=== PATIENT | female | born 1955 | race Two or more races ===

== ENCOUNTER 2024-09-22 14:27 | Emergency (ER) | payer OTHER ==
[~2024-09-22] VITALS: Ht 160 cm; Wt 68.0 kg
[2024-09-22] MEDS ORDERED: SIMVASTATIN5 MG PO (15:24)
[2024-09-22] MEDS ORDERED: METOPROLOL SUCC25 MG PO (15:24)
[2024-09-22] MEDS ORDERED: LISINOPRIL-HCT1 EAC1 PO (15:24)
[2024-09-22] MEDS ORDERED: MIDAZOLAM H IJ (15:24)
[2024-09-22] MEDS ORDERED: METHOTREXA25 MG/1 M5 (15:25)
[2024-09-22] MEDS ORDERED: DIPHENHYDRAMINE HCL 50 MG/ML VIAL 1ML IM STA (16:55)
[2024-09-22 18:58] LABS: HEMATOCRIT 36.4 % (36.0-45.00); MEAN CELL VOLUME 93.7 fL (80.00-100.00); MEAN CORPUSCULAR HEMOGLOBIN 30.9 pg (27.00-32.0); PLATELET COUNT 296 K/uL (150-450); RED BLOOD COUNT 3.88 M/uL (4.00-6.00)
[2024-09-22] MEDS ORDERED: DEXAMETHASONE SODIUM PHOSPHATE 4 MG/ML VIAL IM STA (19:22)
== END 2024-09-22 19:40 | disposition home or self-care (01) ==
LOC: ER 14:29
PROVIDERS: General Practice
DX: L50.9 Urticaria, unspecified (principal)
CPT/HCPCS: 36415; 96372; 99282; J1100; J1200